=== PATIENT | male | born 1945 | race Caucasian/White ===

== ENCOUNTER 2022-07-10 06:20 | Emergency (ER) | payer MEDICARE, MEDICAID ==
[~2022-07-10] VITALS: Ht 182.9 cm; Wt 68.0 kg
[2022-07-10 06:20] VITALS: BP 170/80
--- NOTE | 2022-07-10 06:25 | NUR ---
PT TO BED 08.
--- NOTE | 2022-07-10 06:29 | NUR ---
ERMD AT BEDSIDE EXAMINING
--- NOTE | 2022-07-10 06:34 | NUR ---
PT COMES FROM [address] [place] [address]
[2022-07-10] MEDS ORDERED: KETOROLAC 15 MG/ML VIAL IVP ONE (06:35)
--- NOTE | 2022-07-10 06:59 | NUR ---
PT TAKEN TO CT VIA [facility]
--- NOTE | 2022-07-10 07:04 | NUR ---
PT BACK FROM CT.
[2022-07-10 07:10] LABS: BASOPHILS % (AUTO) 0.4 % (0.0-2.0); EOSINOPHILS # (AUTO) 0.1 K/uL (0-0.4); HEMATOCRIT 40.3 % (36-52); LYMPHOCYTES # (AUTO) 1.2 K/uL (2.0-11.5); LYMPHOCYTES % (AUTO) 10.4 % (20.5-51.1); MEAN CORPUSCULAR HEMOGLOBIN 28 pg (27-31); MEAN CORPUSCULAR HGB CONC 32 g/dL (33-37); MEAN CORPUSCULAR VOLUME 86.5 fL (80-94); MONOCYTES # (AUTO) 0.6 K/uL (0.8-1.0); MONOCYTES % (AUTO) 5.4 % (1.7-9.3); NEUTROPHILS # (AUTO) 9.6 K/uL (1.8-7.7); NEUTROPHILS % (AUTO) 82.8 % (42.2-75.2); PLATELET COUNT (AUTO) 330 K/uL (140-450); RED BLOOD CELL COUNT(AUTO) 4.66 MIL/uL (4.20-6.10); RED CELL DISTRIBUTION WIDTH 14.1 % (11.6-13.7); WHITE BLOOD COUNT (AUTO) 11.6 K/uL (4.8-10.8)
[2022-07-10 07:14] LABS: ALBUMIN 3.7 g/dL (3.4-5.0); AMYLASE 61 U/L (25-115); ANION GAP 14.6 (8-16); ASPARTATE AMINOTRANSFERASE 18 U/L (15-37); CARBON DIOXIDE 26.6 mmol/L (21-32); CHLORIDE 107 mmol/L (98-107); GLUCOSE 115 mg/dL (74-106); LIPASE 92 U/L (73-393); POTASSIUM 4.2 mmol/L (3.5-5.1); SODIUM SERUM 144 mmol/L (136-145); TOTAL BILIRUBIN 0.6 mg/dL (0.0-1.0); UREA NITROGEN, BLOOD 22 mg/dL (7-18)
[2022-07-10] MEDS ORDERED: ONDANSETRON 4 MG/2 ML VIAL IVP ONE (07:20)
--- NOTE | 2022-07-10 08:01 | NUR ---
77YR OLD MALE C/O ABD PAIN VOMITING . PT SPEAKS PORTUGUSE SABA USED #[id number]. PT PAIN LEVEL AT A 10/. DENIES CP OR SOB. PT IS A&OX4. 20G IN R AC. RESP EVEN AND UNLABORED. SIDE RAILS UP X2 BED AT LOWEST POSITION NKDA NO HX
--- NOTE | 2022-07-10 08:49 | NUR ---
COVID SWAB COLLECTED AND SENT TO LAB
--- NOTE | 2022-07-10 08:53 | NUR ---
PATIENT WANTING TO LEAVE , PUTTING ON CLOTHES. USED [facility] #[id number] TO EXPLAIN TO PATIENT ON PENDING LABS /TEST TO DETERMINE THE DX. PATIENT AGREED TO STAY
--- NOTE | 2022-07-10 09:29 | NUR ---
Nikole gavin in [facility] - 07/10/22 at 1033 by PHILIP PT WILL BE ADMITED. TIMOTHYSUMikeyG
[2022-07-10] MEDS ORDERED: ACETAMINOPHEN 325 MG TAB PO ONE (09:40)
[2022-07-10 09:50] LABS: APPEARANCE,URINE CLEAR (CLEAR); BILIRUBIN,URINE NEGATIVE (NEGATIVE); BLOOD, URINE 3+ (NEGATIVE); COLOR,URINE YELLOW (YELLOW); LEUKOCYTE ESTERASE ,URINE NEGATIVE (NEGATIVE); NITRITE, URINE NEGATIVE (NEGATIVE); PH,URINE 6.5 (5.0-9.0); UGLUCOSE NEGATIVE (NEGATIVE)
[2022-07-10 10:05] LABS: RBC,URINE 11-20 (MOD) /HPF (0-5); WBC,URINE 0-5 /HPF (0-5)
--- NOTE | 2022-07-10 10:08 | NUR ---
Note undone in EDM - 07/10/22 at 1033 by MNURPM 35YR OLD MALE BIB SELF C/O R FLANK PAIN XTODAY. PAIN STARTS R FLANK AND RADIATES TO RLQ AREA. PAIN LEVEL 8/10. HX OF KIDNEY STONES IN PAST. PT A&OX4 SKIN WARM PINK DRY. DENIES FEVER. DENIES URIANATION DIFFCULTLY. PT IN GOWN IN BED HOB ELEVATED. SIDE RAIL UP X1. URINE OBTAINED. NKDA KIDNEY STONES
[2022-07-10] MEDS ORDERED: NAPR-1704 PO (10:26)
[2022-07-10] MEDS ORDERED: TAMS0.4C96 PO (10:26)
--- NOTE | 2022-07-10 10:33 | NUR ---
IV removed, catheter intact and site benign. Applied folded 4x4 gauze and tape to stop bleeding.
[2022-07-10 10:41] VITALS: BP 157/88
--- NOTE | 2022-07-10 10:41 | NUR ---
Patient discharged with v/s stable. Written and verbal after care instructions given and explained. Patient alert, oriented and verbalized understanding of instructions. Ambulatory with steady gait. All questions addressed prior to discharge. ID band removed. Patient advised to follow up with PMD. Rx of NAPROSYN FLOMAX given. Patient educated on indication of medication including possible reaction and side effects. Opportunity to ask questions provided and answered.
--- NOTE | 2022-07-10 10:56 | NUR ---
SPOKE TO CRISEL[facility], WILL BE PICKING UP PT IN 45 MINS.
--- NOTE | 2022-07-10 11:29 | NUR ---
PATIENT WALKED OUT TO [facility] WAS DX PAPERWORK EXPLAINED TO CRISELDA. PT AMBULATE WITH STEADY GAIT
--- NOTE | 2022-07-10 11:30 | NUR ---
The patient's care was reviewed and supervised by Angeles Bravo RN.
== END 2022-07-10 10:41 | disposition home or self-care (01) ==
LOC: MED 06:20
DX: N20.1 Calculus of ureter (principal); Z20.822 Contact with and (suspected) exposure to COVID-19; Z98.890 Other specified postprocedural states; Z72.89 Other problems related to lifestyle
CPT/HCPCS: 36415; 74176; 80053; 81001; 82150; 83690; 85025; 85610; 85730; 87086; 87426; 96374; 96375; 99284; J1885; J2405